=== PATIENT | male | born 2000 | race Caucasian/White ===

== ENCOUNTER 2019-12-04 11:05 | Emergency (ER) | payer BC ==
[~2019-12-04] VITALS: Ht 190.5 cm; Wt 93.2 kg
[2019-12-04 11:24] VITALS: BP 151/77; TEMP 100
[2019-12-04 13:02] VITALS: PULSE 62
== END 2019-12-04 13:00 | disposition home or self-care (01) ==
LOC: COL.ER 11:05
DX: S93.402A Sprain of unspecified ligament of left ankle, initial encounter (principal); W10.8XXA Fall (on) (from) other stairs and steps, initial encounter; X50.1XXA Overexertion from prolonged static or awkward postures, initial encounter; Y93.01 Activity, walking, marching and hiking; Y92.009 Unspecified place in unspecified non-institutional (private) residence as the place of occurrence of the external cause